=== PATIENT | female | born 1970 | race African-American/Black ===

== ENCOUNTER 2018-04-13 11:17 | Outpatient (CLI) | payer BC ==
--- NOTE | 2018-04-13 13:10 | RAD ---
RADIOGRAPH LEFT WRIST 3 VIEWS: DATE: 04/13/2018. HISTORY: A 48-year-old female with nontraumatic left wrist pain for 2 weeks. FINDINGS: Joint spaces are maintained without erosions or osteophytes. Alignment is normal. Bone mineralizati on is normal. No soft tissue calcifications. IMPRESSION: Normal. POS: [facility]
== END 2018-04-13 11:18 | disposition home or self-care (01) ==
LOC: BICRAD 11:17
PROVIDERS: ATTEND Internal Medicine
DX: M25.532 Pain in left wrist (principal)

== ENCOUNTER 2018-08-07 14:30 | Emergency (ER) | payer SELFPAY | END 2018-08-07 15:27 | disposition home or self-care (01) | LOC: SCSER 14:30 | DX: Z76.0 Encounter for issue of repeat prescription (principal); I10 Essential (primary) hypertension; F17.210 Nicotine dependence, cigarettes, uncomplicated; Z79.899 Other long term (current) drug therapy | CPT/HCPCS: 99281 ==